=== PATIENT | female | born 1950 | race Caucasian/White ===

== ENCOUNTER 2018-12-23 11:08 | Emergency (ER) | payer MEDICARE ==
[~2018-12-23] VITALS: Ht 170.2 cm; Wt 66.8 kg
[2018-12-23 11:55] LABS: BASOPHILS # (AUTO) 0.1 X10'3 (0-0.2); BASOPHILS % (AUTO) 1.2 % (0-1); EOSINOPHILS # (AUTO) 0.6 X10'3 (0-0.9); EOSINOPHILS % (AUTO) 5.9 % (0-6); HEMATOCRIT 38.4 % (35.0-45.0); HEMOGLOBIN 13.3 g/dl (12.0-16.0); LYMPHOCYTES # (AUTO) 2.6 X10'3 (1.1-4.8); LYMPHOCYTES % (AUTO) 25.5 % (21-51); MEAN CORPUSCULAR HEMOGLOBIN 31.7 PG (27.0-31.0); MEAN CORPUSCULAR HGB CONC 34.7 g/dL (33.0-36.5); MEAN CORPUSCULAR VOLUME 91.4 FL (78-98); MEAN PLATELET VOLUME 7.7 FL (7.4-10.4); MONOCYTES % (AUTO) 9.8 % (2-12); NEUTROPHILS # (AUTO) 5.8 X10'3 (1.8-7.7); NEUTROPHILS % (AUTO) 57.6 % (42-75); PLATELET COUNT 388 X10'3 (140-440); RED CELL DISTRIBUTION WIDTH 13.4 % (11.5-14.5); WHITE BLOOD COUNT 10.1 X10'3 (4.5-11.0)
[2018-12-23] MEDS ORDERED: metoprolol tartrate 1mg/ml inj IV ONE (12:00)
[2018-12-23 12:18] LABS: ALANINE AMINOTRANSFERASE 17 U/L (12-78); ALBUMIN 4.2 G/DL (3.4-5.0); ALBUMIN/GLOBULIN RATIO 1.2 (1.1-1.5); ALKALINE PHOSPHATASE 85 IU/L (46-116); ANION GAP 12 (8-16); ASPARTATE AMINO TRANSFERASE 18 U/L (10-37); BILIRUBIN,TOTAL 0.4 MG/DL (0.1-1.0); BLOOD UREA NITROGEN 11 MG/DL (7-18); BUN/CREATININE RATIO 11.8 (6.6-38.0); CALCIUM 9.6 MG/DL (8.5-10.1); CHLORIDE 100 MMOL/L (99-107); CREATININE 0.93 MG/DL (0.40-0.90); GLUCOSE 96 MG/DL (70-104); PARTIAL THROMBOPLASTIN TIME 31 SECONDS (22-32); POTASSIUM 4.1 MMOL/L (3.5-5.1); SODIUM 136 MMOL/L (135-145); TOTAL CARBON DIOXIDE 24.4 MMOL/L (24-32); TOTAL PROTEIN 7.8 G/DL (6.4-8.2); eGFR 60 ML/MIN
[2018-12-23] MEDS ORDERED: normal saline 1000ML IV soln IVB ONE (12:35)
--- NOTE | 2018-12-23 13:00 | NUR ---
PT REQUESTING TO AMBULATE TO THE BATHROOM. PT GETS UP AND WALKS TO THE DOOR OF HER ROOM SHE STOP AND C/O SOB AND IS UNABLE TO GO DOWN TO THE BATHROOM BRING COMMODE INTO THE ROOM. PT HR IS NOW 126. NOTIFY .
[2018-12-23 14:00] VITALS: BP 107/57
[2018-12-23] MEDS ORDERED: METO-539 PO (15:44)
== END 2018-12-23 14:03 | disposition home or self-care (01) ==
LOC: ER 11:09
DX: R00.2 Palpitations (principal); R06.02 Shortness of breath; R20.2 Paresthesia of skin; G43.909 Migraine, unspecified, not intractable, without status migrainosus; E78.00 Pure hypercholesterolemia, unspecified; F41.9 Anxiety disorder, unspecified; Z87.891 Personal history of nicotine dependence; Z98.890 Other specified postprocedural states
CPT/HCPCS: 36415; 71045; 80053; 84484; 85025; 85610; 85730; 93005; 96374; 99284; J7030; J3490

== ENCOUNTER 2023-01-20 09:22 | Day surgery (SDC) | payer MEDICARE ==
[2023-01-16 15:53] LABS: BASOPHILS # (AUTO) 0.1 X10'3 (0-0.2); BASOPHILS % (AUTO) 0.9 % (0-1); EOSINOPHILS # (AUTO) 0.2 X10'3 (0-0.9); LYMPHOCYTES # (AUTO) 1.8 X10'3 (1.1-4.8); LYMPHOCYTES % (AUTO) 24.9 % (21-51); MEAN CORPUSCULAR HEMOGLOBIN 31.2 PG (27.0-31.0); MEAN CORPUSCULAR HGB CONC 33.3 g/dL (33.0-36.5); MEAN CORPUSCULAR VOLUME 93.5 FL (78-98); MEAN PLATELET VOLUME 7.5 FL (7.4-10.4); MONOCYTES % (AUTO) 13.4 % (2-12); NEUTROPHILS # (AUTO) 4.3 X10'3 (1.8-7.7); NEUTROPHILS % (AUTO) 57.8 % (42-75); PRE OP HEMATOCRIT 36.5 % (35.0-45.0); PRE OP HEMOGLOBIN 12.1 g/dL (12.0-16.0); PRE OP PLATELET COUNT 315 X10'3 (140-440); PRE OP WHITE BLOOD COUNT 7.4 10'3 (4.8-10.8); RED CELL DISTRIBUTION WIDTH 13.8 % (11.5-14.5)
[2023-01-16 16:04] LABS: PRE OP PROTIME 10.4 SECONDS (9.0-12.0)
[2023-01-16 16:11] LABS: ALBUMIN 3.7 G/DL (3.4-5.0); ALBUMIN/GLOBULIN RATIO 1.2 (1.1-1.5); ALKALINE PHOSPHATASE 104 IU/L (46-116); BLOOD UREA NITROGEN 21 MG/DL (7-18); BUN/CREATININE RATIO 22.3 (10.0-20.0); CALCIUM 9.6 MG/DL (8.5-10.1); CHLORIDE 103 MMOL/L (99-107); CREATININE 0.94 MG/DL (0.40-0.90); PRE OP ALT 37 U/L (30-65); PRE OP ANION GAP 5 (8-16); PRE OP AST 55 U/L (10-37); PRE OP BILIRUB, TOTAL 0.5 MG/DL (0.0-1.0); PRE OP GLUCOSE 85 MG/DL (70-104); PRE OP POTASSIUM 4.3 MMOL/L (3.4-5.1); PRE OP SODIUM 136 MMOL/L (135-145); TOTAL CARBON DIOXIDE 28.3 MMOL/L (24-32); TOTAL PROTEIN 6.9 G/DL (6.4-8.2); eGFR 58 ML/MIN
[~2023-01-20] VITALS: Ht 171.4 cm; Wt 88.4 kg
[2023-01-20] VITALS (11 sets, daily range): BP systolic 112–141; BP diastolic 61–87; PULSE 60–80; RESP 11–16; TEMP 97.9; O2SAT 92–100
[~2023-01-20 09:22] MED LIST: ALB0.5UD; ALPR0.255 PO; APIX5TAB3 PO; ATOR-2 PO; B12/1TAB5; BUPR100T15 PO; BUPR300T86 PO; CEFD300C21 PO; DOCUMENT DATE & TIME OF BETA-BLOCKER PO ONE; DONE-46 PO; DULO30CA52 PO; ESKE84SP BOTHNARES; FLUV50TA24 PO; GABA600T13; LIDOcaine 1% w/EPI 1:100,000 inj. MDV 50 ML VIAL ONE; METO25TA6 PO; PANT40TA54 PO; VALA100031 PO; cefazolin 2gm/D5W 100mL 100 ML IV ONE; cocaine 4% topical solution 4ml bottle ONE; enalaprilat dihydrate 2.5mg/2ml vial IV PRN; famotidine 20mg tablet PO ONE; labetalol 20mg/4ml (5mg/ml) syringe IV PRN; meperidine/PF 25mg/ml syringe IV PRN; morphine 2 MG/ML inj. syringe IV PRN; morphine 4 MG/ML inj SYRINge IV PRN; mupirocin 2% ointment 22GM ONE; ondansetron/PF 4mg/2ml inj IV PRN; oxymetazoline 15 ML nasal spray NS ONE; proCHLORperazine 10 MG/2 ml inj IV PRN; ringers solution, lacted 1,000 ML IV SCH; tranexamic acid inj. 1,000 MG in normal saline IV soln 100ML IV ONE
[2023-01-20] MEDS ORDERED: dexamethasone sod phosphate 10mg/ml inj ONE (11:52)
[2023-01-20] MEDS ORDERED: sevoflurane 250ml liquid IH ONE (11:52)
[2023-01-20] MEDS ORDERED: midazolam 1 mg/ML 2ml injection ONE (12:02)
[2023-01-20] MEDS ORDERED: fentaNYL/PF 50MCG/1 ML 2ML syringe ONE (12:02)
[2023-01-20] MEDS ORDERED: ePHEDrine 50MG/ML INJ. ONE (12:14)
[2023-01-20] MEDS ORDERED: propofol inj 20 ML IV ONE (12:14)
[2023-01-20] MEDS ORDERED: LIDOcaine 2% (20mg/ml) 5ml vial ONE (12:14)
[2023-01-20] MEDS ORDERED: tranexamic acid 100mg/ml inj. ONE (12:15)
[2023-01-20] MEDS ORDERED: oxymetazoline 15 ML nasal spray NS ONE (12:41)
[2023-01-20] MEDS ORDERED: LIDOcaine 1% W/epiNEPHrine 1:100,000 20ml vial IJ ONE (12:41)
[2023-01-20] MEDS ORDERED: cocaine 4% topical solution 4ml bottle TP ONE (12:41)
[2023-01-20] MEDS ORDERED: epiNEPHrine 1 mg/ml 30ml MDV ENDO ONE (12:45)
[2023-01-20] MEDS ORDERED: mupirocin 2% cream 15gm TP ONE (12:48)
[2023-01-20] MEDS ORDERED: ondansetron/PF 4mg/2ml inj ONE (12:55)
--- NOTE | 2023-01-20 13:14 | NUR ---
Received from OR via MIN, accompanied by Anesthesiologist and report given by DEREK Anesthesiologist. PATIENT WAKING UP, DENIES PAIN, VSS, 20G PIV TO RIGHT HAND, RIGHT NASAL COTTONOID DRESSING C/D/I. Addendum: 01/20/23 at 1338 by Patrick Marquis RN Amended: Links added.
[2023-01-20] MEDS ORDERED: salt irrigation nasal spray 45 ML SPRAY NS PRN (14:00)
--- NOTE | 2023-01-20 14:00 | NUR ---
REMOVED RIGHT COTTONOID - PT TOLERATED WELL. GAUZE AND NASAL DRESSING WYNNE IN PLACE.
--- NOTE | 2023-01-20 14:54 | NUR ---
PT UP AND DRESSED, VSS, DENIES ANY PAIN, PIV D/CD- CANNULA INTACT, DISCUSSED HOME CARE FOR NASAL IRRIGATION AND MEDICATIONS, PT USED OCEAN SPRAY AND OINTMENT BEFORE LEAVING, ALL QUESTIONS ANSWERED, FRESH GAUZE PLACE UNDER NOSE, PT TAKEN WITH SUPPLIES AND BELONGINGS TO VEHICLE, TRANSPORTED BY [facility]. Addendum: 01/20/23 at 1501 by Patrick Marquis RN Amended: Links added.
== END 2023-01-20 14:54 | disposition home or self-care (01) ==
LOC: PAS 09:22
PROVIDERS: ATTEND Otolaryngology
DX: J32.8 Other chronic sinusitis (principal); J34.89 Other specified disorders of nose and nasal sinuses; I48.91 Unspecified atrial fibrillation; I10 Essential (primary) hypertension; G43.909 Migraine, unspecified, not intractable, without status migrainosus; F32.A Depression, unspecified; F41.9 Anxiety disorder, unspecified; E78.5 Hyperlipidemia, unspecified; M19.90 Unspecified osteoarthritis, unspecified site; Z90.710 Acquired absence of both cervix and uterus; Z96.649 Presence of unspecified artificial hip joint; Z87.891 Personal history of nicotine dependence; Z98.890 Other specified postprocedural states
CPT/HCPCS: 31240; 31253; 31267; 36415; 61782; 80053; 82948; 85025; 85610; 85730; 87070; 87075; A6402; J0171; J0690; J1100; J2250; J2405; J2704; J3010; J3490; J7030; J7050; J7120; Z7506; Z7508; Z7512; A4618; A6449; A7000

== ENCOUNTER 2024-07-10 07:32 | Emergency (ER) | payer MEDICARE ==
[~2024-07-10] VITALS: Ht 170.2 cm; Wt 75.1 kg
[~2024-07-10 07:32] MED LIST changes: +BUPR-480 PO; -BUPR300T86 PO; -DOCUMENT DATE & TIME OF BETA-BLOCKER PO ONE; +FLUV50TA10 PO; -FLUV50TA24 PO; +GABA-1405; -GABA600T13; -LIDOcaine 1% w/EPI 1:100,000 inj. MDV 50 ML VIAL ONE; -cefazolin 2gm/D5W 100mL 100 ML IV ONE; -cocaine 4% topical solution 4ml bottle ONE; -enalaprilat dihydrate 2.5mg/2ml vial IV PRN; -famotidine 20mg tablet PO ONE; -labetalol 20mg/4ml (5mg/ml) syringe IV PRN; -meperidine/PF 25mg/ml syringe IV PRN; -morphine 2 MG/ML inj. syringe IV PRN; -morphine 4 MG/ML inj SYRINge IV PRN; -mupirocin 2% ointment 22GM ONE; -ondansetron/PF 4mg/2ml inj IV PRN; -oxymetazoline 15 ML nasal spray NS ONE; -proCHLORperazine 10 MG/2 ml inj IV PRN; -ringers solution, lacted 1,000 ML IV SCH; -tranexamic acid inj. 1,000 MG in normal saline IV soln 100ML IV ONE
[2024-07-10 07:35] VITALS: TEMP 97.7
[2024-07-10 08:46] LABS: BASOPHILS # (AUTO) 0.1 X10'3 (0-0.2); BASOPHILS % (AUTO) 0.8 % (0-1); EOSINOPHILS # (AUTO) 0.3 X10'3 (0-0.9); EOSINOPHILS % (AUTO) 3.9 % (0-6); HEMATOCRIT 31.9 % (35.0-45.0); HEMOGLOBIN 10.8 g/dl (12.0-16.0); LYMPHOCYTES # (AUTO) 1.8 X10'3 (1.1-4.8); LYMPHOCYTES % (AUTO) 25.3 % (21-51); MEAN CORPUSCULAR HEMOGLOBIN 30.9 PG (27.0-31.0); MEAN PLATELET VOLUME 7.2 FL (7.4-10.4); MONOCYTES # (AUTO) 0.8 X10'3 (0-0.9); PLATELET COUNT 240 X10'3 (140-440); RED BLOOD COUNT 3.51 X10'6 (4.20-5.60); RED CELL DISTRIBUTION WIDTH 13.9 % (11.5-14.5)
[2024-07-10 09:03] LABS: ALBUMIN 3.1 G/DL (3.4-5.0); ANION GAP 4 (8-16); BLOOD UREA NITROGEN 18 MG/DL (7-18); BUN/CREATININE RATIO 21.7 (10.0-20.0); CALCIUM 8.8 MG/DL (8.5-10.1); CHLORIDE 105 MMOL/L (99-107); CREATININE 0.83 MG/DL (0.40-0.90); GLUCOSE 91 MG/DL (70-104); MAGNESIUM 2.2 MG/DL (1.5-2.4); POTASSIUM 4.6 MMOL/L (3.5-5.1); SODIUM 139 MMOL/L (135-145); TOTAL CARBON DIOXIDE 30.2 MMOL/L (24-32); eCRCL 58 ML/MIN; eGFR 67 ML/MIN
[2024-07-10] MEDS: normal saline 500ml IV soln 500 ML IV ONE (09:12)
[2024-07-10 10:13] VITALS: PULSE 56
[2024-07-10 11:21] VITALS: BP 93/75; RESP 15; O2SAT 100
== END 2024-07-10 11:24 | disposition home or self-care (01) ==
LOC: ER 07:34
DX: S01.111A Laceration without foreign body of right eyelid and periocular area, initial encounter (principal); S09.90XA Unspecified injury of head, initial encounter; E78.00 Pure hypercholesterolemia, unspecified; I48.91 Unspecified atrial fibrillation; W18.30XA Fall on same level, unspecified, initial encounter; Y93.89 Activity, other specified; Y92.89 Other specified places as the place of occurrence of the external cause; Y99.8 Other external cause status
CPT/HCPCS: 12011; 36415; 70450; 72125; 80048; 83735; 84484; 85025; 99284; A6402; J7040; A6449

== ENCOUNTER 2024-12-18 19:55 | Inpatient (IN) | payer MEDICARE ==
[~2024-12-18] VITALS: Ht 170.2 cm; Wt 68.0 kg
--- NOTE | 2024-12-18 20:32 | RADIOLOGY REPORT ---
CHEST RADIOGRAPH Indication: CP Technique: 1 view Comparison: None FINDINGS: Lines and Tubes: None. Lungs/Pleura: No focal consolidation, pleural effusion or pneumothorax. Cardiomediastinum: Normal heart size. Aortic atherosclerosis. Other: No acute osseous abnormality. Densely calcified breast implants. IMPRESSION: 1. No acute cardiopulmonary abnormality.
[2024-12-18 20:40] LABS: MEAN PLATELET VOLUME 7.7 FL (7.4-10.4); RED CELL DISTRIBUTION WIDTH 13.7 % (11.5-14.5)
[2024-12-18 20:54] LABS: CREATININE 1.52 MG/DL (0.40-0.90); PRO BRAIN NATRIURETIC PEPTIDE 167 PG/ML (0-450); TOTAL CARBON DIOXIDE 26.8 MMOL/L (24-32); eCRCL 31 ML/MIN; eGFR 33 ML/MIN
--- NOTE | 2024-12-18 21:04 | ELECTROCARDIOGRAPH REPORT ---
[facility] Test Date: 2024-12-18 Test Time: 20:15:48 Pat Name: BRETT RIVERA Department: [facility]-ER Patient ID: [facility]-[id number] Room: Gender: F Business Support Liaison: : 1950 Requested By: EVELINA WERNER Order Number: [id number] Reading MD: Dr. Evelina Werner Measurements Intervals [place] Rate: 67 P: 25 AK: 123 QRS: 80 QRSD: 96 T: 77 QT: 411 QTc: 434 Interpretive Statements Sinus rhythm Nonspecific T abnrm, anterolateral leads Electronically Signed On 12-18-2024 21:08:[address] Evelina Werner Please click the below link to view image of tracing.
--- NOTE | 2024-12-18 22:36 | Physician Documentation ---
History of Present Illness ~ Chief Complaint: Shortness of Breath Stated Complaint: SOB/BACK PAIN Time Seen by MD: 21:57 Primary Medical Doctor: Randi allen 74-year-old female presents to the ED with a complaint of several months of shortness a breath. States that she smoked for 15 years denies living with a smoker currently. Her primary complaints of shortness of breath and increased memory loss and weakness. States she does know she has kidney issues but is not a very good historian regards to her health history. States she does have a recorder of deeds's who is Dr. Mcnally. Describes intermittent chest tim n but calls it a twinge. States that she does have a family history of Alzheimer's but has not been diagnosed with dementia. Day of Onset: Dec 18, 2024 Medication Reconciliation Allergies: Coded Allergies: No Known Allergies (Unverified , 12/23/18) Scheduled Apixaban (Eliquis), 1 TAB PO BID, (Reported) Atorvastatin Calcium (Atorvastatin Calcium), 1 TAB PO DAILY, (Reported) Bupropion HCl (Bupropion HCl Sr), 1 TAB PO QAM, (Reported) Bupropion HCl (Bupropion Xl), 1 TAB PO DAILY, (Reported) Cefdinir (Cefdinir), 1 TAB PO BID, (Reported) Donepezil Hcl (Donepezil Hcl), 1 TAB PO HS, (Reported) Duloxetine HCl (Duloxetine HCl), 3 CAP PO DAILY, (Reported) Esketamine HCl (Spravato), 3 SPRAYS BOTHNARES TuFr, (Reported) Fluvoxamine Maleate (Fluvoxamine Maleate), 1 TAB PO HS, (Reported) Gabapentin (Gabapentin), 0.5 TAB BID, (Reported) Metoprolol Tartrate (Metoprolol Tartrate), 1 TAB PO DAILY, (Reported) Pantoprazole Sodium (Pantoprazole Sodium), 1 TAB PO DAILY, (Reported) Valacyclovir HCl (Valacyclovir), 1 TAB PO DAILY, (Reported) Scheduled PRN Alprazolam (Alprazolam), 1 TAB PO TID PRN for anxiety, (Reported) Miscellaneous Medications Albuterol Sulfate* (Proventil Neb*), (Reported) B12/Methyltetrahydrofolate/B6 (Methyl U66-Gakxor Folate-P5p), (Reported) Past Medical History Past Medical History: Migraine, Atrial Fibrillation, High Cholesterol, Anxiety Past Surgical History: noncontributory, orthopedic surgeries Alcohol Use: Sober Drug Use: none Lives In: Home Review of Systems All Other Systems at this time: Reviewed and Negative ROS As stated above in the HPI, otherwise all systems are reviewed and negative. Physical Exam Vital Signs: Temperature: 98.3, Heart Rate: 97, Respiratory Rate: 14, BP: 115/40, Pulse Oximetry: 98, Weight: 70.900 Oxygen Flow Rate: 0 Physical Exam General: Alert, no apparent distress. Respiratory: Lungs clear, no respiratory distress. Chest: No accessory muscle use. Cardiovascular: Regular rate and rhythm, no murmurs. Extremities: Normal range of motion, no deformity. Neurologic: Oriented x4. Psychiatric: Normal mood and affect. Skin: Normal color, warm and dry. No edema, no ecchymosis. Progress Results/Orders Results/Orders Orders - DEMETRIS DELACRUZ HANDS PARTER Urinalysis, Cult If Indicated (12/18/24 23:10) Vital Signs 12/18/24 12/18/24 20:02 21:51 Temp 97.7 98.3 Pulse 62 97 Resp 16 14 B/P (MAP) 109/40 115/40 (65) Pulse Ox 100 98 O2 Flow Rate 0 0 Laboratory Tests Test 12/18/24 20:19 12/18/24 22:04 12/18/24 23:13 12/18/24 23:50 White Blood Count 7.6 Red Blood Count 3.62 L Hemoglobin 11.4 L Hematocrit 33.0 L Mean Corpuscular Volume 91.3 Mean Corpuscular Hemoglobin 31.6 H Mean Corpuscular Hemoglobin Concent 34.6 Red Cell Distribution Width 13.7 Platelet Count 287 Mean Platelet Volume 7.7 Neutrophils (%) (Auto) 60.6 Lymphocytes (%) (Auto) 24.9 Monocytes (%) (Auto) 11.1 Eosinophils (%) (Auto) 2.7 Basophils (%) (Auto) 0.7 Neutrophils # (Auto) 4.6 Lymphocytes # (Auto) 1.9 Monocytes # (Auto) 0.8 Eosinophils # (Auto) 0.2 Basophils # (Auto) 0.1 CBC Comment Sodium Level 136 Potassium Level 3.7 Chloride Level 101 Carbon Dioxide Level 26.8 Anion Gap 8 Blood Urea Nitrogen 23 H Creatinine 1.52 H Estimated GFR/1.73 m2 33 BUN/Creatinine Ratio 15.1 Glucose Level 85 Hemoglobin A1c 5.6 Osmolality 284 Calcium Level 9.3 Troponin I High Sensitivity 6 6 7 Pro-B-Type Natriuretic Peptide 167 Albumin 3.5 Triglycerides Level 97 Cholesterol Level 148 LDL Cholesterol 43 L HDL Cholesterol 81 H Cholesterol/HDL Ratio 1.8 Procalcitonin < 0.05 Thyroid Stimulating Hormone (TSH) 3.01 Chemistry Comments Troponin I High Sens Percent Delta 0 16 Troponin I Hi Sens Absolute Change 0 1 Urine Comment Drug Screen Comment Heart Score: Heart Score Response (Comments) Value History Slightly Suspicious 0 EKG Normal 0 Age >65 2 Risk Factors >3 or Hx ASHD 2 Troponin Normal limit 0 Total 4 Medical Decision Making Findings The patient does not present with the acute cardiac event or evidence of one. He does present with the acute kidney injury and increased creatinine along with decreased GFR.. Based on these findings and her increased weakness I am going to request hospital admission Differential Dx:Considerations: Include: anxiety, asthma, bronchitis, cardiogenic shock, CHF, COPD, dysrhythmia, hypertension, accelerated, hypertension, essential, hypertension, malignant, hyperventilation, hyponatremia, myocardial infarction, panic attack, pneumonia, pneumonitis, pneumothorax, PSVT, pulmonary embolism, respiratory distress, respiratory failure, sinusitis, upper resp. infection, other Departure Disposition: ADMITTED INPATIENT Impression: Primary Impression: SABRINA (acute kidney injury) Condition: Fair Referrals: NO PRIMARY CARE PROVIDER (PCP) Education Educated: Patient Signature Scribe Signature: h Attestation: Scribed for Demetris Delacruz Jewel Lathe Operator by Demetris Esposito NP . 12/19/24 00:09 DEMETRIS DELACRUZ NP Dec 18, 2024 22:36
--- NOTE | 2024-12-18 23:45 | HISTORY AND PHYSICAL-Residence ---
History & Physical Providers to CC Resident Creating Document: APOLINAR TOUSSAINT, RES ~ History of Present Illness Primary Medical Doctor: Randi Reason for Admit\\Complaint: NOn specific SABIRNA with SOB and generalized weakness History of Present Illness A 74 years old anxious and depressed female presented with the acute on chronic shortness of breath along with the generalized weakness which made her worrisome to come to the ER with the PMH of anxiety, depression, PAfib w/ CVR on Eliquis, non specific Mild cognitive dysfunction, HLD, family hx of cancer in her sister and young onset Alzheimer in her father, 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 She was tearful with the poor historian status stated that she has a concern for her acute sudden shortness of breath today which was totally different from her previous ones while denying coughing up of colorful phlegm or blood, orthopnea and PND with bilateral progressive leg swelling. She denied for any unspecified and unlocalized chest pain but pointed with her finger for the abrupt sharp pain what she called was "twinge", which was not worsen on the deep breathing. She stated that she used to have frequent green colored sputum what she calls is "Biofilm", and frequently on the ABx even after she got the ENT surgery by Dr Castro. She denied for any fever with chills and rigors, and palpitations and any abnormal bladder function including dysuria/frequent and urgent urination and blood in the urine. SHe noticed that she used to have the anemia but not quite sure if she has passing blood in her BM. She only noticed that she has been losing appetite and weight since she stopped eating much over a month now. She has the bowel incontinence since last three weeks which is too much bothersome and making her anxious. She also complained of the recent memory impairment but denied for losing route to go home, losing the keys frequently, and having issues for memorizing the people names although her father had a young onset of Alzheimer. She is currently feeling blue for worrying her grandson who is 14 years old, but she denied for any current active suicidal and homicidal ideas although she used to have some thoughts. She stated that she is compliance medications what she was prescribed by her PCP. Allergies: Coded Allergies: No Known Allergies (Unverified , 12/23/18) Home Medications Home Medications Active Reported Cefdinir 300 Mg Capsule 1 Tab PO BID Methyl T30-Vwoeyb Folate-P5p (B12/Methyltetrahydrofolate/B6) 1,000 Mcg-680 Mcg Dfe-1.5 Mg Tab.chew Valacyclovir (Valacyclovir HCl) 1,000 Mg Tablet 1 Tab PO DAILY Proventil Neb* (Albuterol) 2.5 Mg/0.5 Ml Vial.neb Eliquis (Apixaban) 5 Mg Tablet 1 Tab PO BID Gabapentin 600 Mg Tablet 0.5 Tab BID Metoprolol Tartrate 25 Mg Tablet 1 Tab PO DAILY Atorvastatin Calcium 80 Mg Tablet 1 Tab PO DAILY Donepezil Hcl 5 Mg Tablet 1 Tab PO HS Duloxetine HCl 30 Mg Capsule.dr 3 Cap PO DAILY Fluvoxamine Maleate 50 Mg Tablet 1 Tab PO HS Alprazolam 0.25 Mg Tablet 1 Tab PO TID PRN Bupropion Xl (Bupropion HCl) 300 Mg Tab.er.24h 1 Tab PO DAILY Bupropion HCl Sr (Bupropion HCl) 100 Mg Tablet.er 1 Tab PO QAM Spravato (Esketamine HCl) 84 Mg (28 Mg X 3) Walker 3 Sprays GISSELNARES APOORVA Pantoprazole Sodium 40 Mg Tablet. 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 She is not using any illicit drugs currently. She is living by herself at her apartment were her grandson and daughter came in to help her frequently. She denies the environment surrounded with the smoker. Her primary care provider is Dr. Annie johnson on the [facility] in [facility]. Her it architect is Dr. Mcnally. Alcohol Use: Sober Drug Use: None Lives In: Home ROS All Other Systems: Reviewed and Negative ROS Constitutional: No fever, chills, dizziness, weakness, weight gain or loss Eyes: No pain, erythema, discharge, blurring of vision ENT: No sore throat, epistaxis, tinnitus Cardiovascular: No chest pain, chest pressure, chest discomfort, palpitations, syncope, lower extremity edema, paroxysmal nocturnal dyspnea Respiratory: No cough, hemoptysis Gastrointestinal: Normal appetite. No nausea, vomiting, diarrhea, constipation, hematemesis, abdominal pain, bloating, melena or fresh blood Genitourinary: No frequency, urgency, nocturia, hematuria or dysuria Musculoskeletal: No arthralgias or myalgias Integumentary: No change in skin, hair, nails. No swelling, bruising, abrasions Neurologic: No headache, neck pain, numbness or tingling of the extremities, weakness Psychiatric: No delusions, loss of interest in normal activity or change in sleep pattern, hallucinations, suicidal ideations Endocrine: No fatigue, weakness, polydipsia, polyuria, change in appetite, heat or cold intolerance, sweating, dry skin Hematological: No active bleeding, petechiae Allergies: No asthma or urticaria Exam Vitals: Vital Signs Date Time Temp Pulse Resp B/P (MAP) Pulse Ox O2 Delivery O2 Flow Rate FiO2 12/18/24 21:51 98.3 97 14 115/40 (65) 98 0 General: General: Well alert, well oriented, not confused, not agitated, not in acute distress but tearful and anxious looking, well cooperated during the physical. HEENT: HEENT: Conjunctive are pink, sclerae clear, no icterus, pupil is equal in both sides, reactive to light, no ear discharge, no pharyngeal erythema or an edema, mouth and lips are moist. Neck: Neck: Supple, no JVD, no lymphadenopathy and thyromegaly. Chest: Lungs:Equal air entry on both lungs, no additional sounds Cardiovascular: Heart: S1-S2 regular sinus rhythm and, regular rate, no gallops, no rubs, no murmurs Abdomen: Abdomen: No visible peristalsis, Bowel sounds present on auscultation, soft, nontender, no guarding, no rigidity Extremities: Extremities: No obvious deformities, no pitting edema bilaterally, capillary refill intact, able to wiggle toes both sides, peripheral pulsations are intact on both sides Central Nervous System: EMERGENCY OPERATOR: No focal neurological deficits, no motor and sensory weakness in all 4 extremities, could move all 4 extremities Musculoskeletal: Musculoskeletal: No joint swelling, deformities, inflammations, and no scoliosis and back tenderness Skin: Skin: No active skin lesions and rashes , old bruises over her extremities. 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 # Acute hypoxic respiratory failure possibly due to hypopnea # Generalized weakness and fatigue # Chronic Hyperchromic anemia # Mental issues ( Depression and anxiety) -Given evidence of rapidly increasing SpO2 levels on frequently reminding for the deep breathing with the background history of mental issues, including anxiety and depression, without having any respiratory issues and any evidence of cardiopulmonary problems on the CXR, her acute hypoxic respiratory failure possibly due to hypopnea. -She found to have chronic hyperchromic anemia, and clinical features of depression Vs mild cognitive dysfunction memory issues, the potential differential diagnoses should be ruled out before the actual diagnosis of mental or cognitive issues. -She has hyperchromic anemia without having lab features of alcoholic liver injury, however, she has a hx of changes in her appetite and weight with recently sister from CRC. Her last time Colonscopy was 2-3 years back with some polyps with normal biopsy reports. Plan: - ordered Vitamin B12 levels and procalcitonin and pending FOBT -normal TSH, serum electrolytes -Started Oral supplement for Vitamin B12 and Folic acid -recommended to follow up with PCP for possible therapist session, and continue home meds for psych issues -pending med rec -Normal Urine Tox screen except for barbituates -practice insensitive spirometry for deep breathing -recommend for PFT in the outpatient setting # Nonspecific Acute kidney injury possibly due to Pre renal from dehydration and renal tubular stasis # CKD stage 2a -Trending her previous records for RFTs, her baseline Cr was around 0.8 and eGFR around 67 last 6 months ago -continue monitoring I's and o's -ordered urine lytes for the SABRINA etiology -given one time IV bolus NS 500 cc over an hour -pending UA with microscopy test # PAfib with CVR on Eliquis # Hyperlipidemia -pending med rec -continue telemetry -Lipid profiled showed low LDL 43 # Bowel incontinence -no recent or past hx of constipation -no diarrhea -started metamucil for encouraging the formed stool and prevent constipation CODE STATUS: DNR DNI (will need to reassess once pt depression was stabilized) DVT prophylaxis: Heparin 5000 units b.i.d. Analgesia/sedation: IV morphine as needed Lines/tubes: PIV GI prophylaxis: Famotidine Nutrition: Heart healthy Prognosis: Guarded Disposition: Continue medical management, continue monitoring I's and o's, pending labs, pending med rec, outpatient managements, PT eval and DC plan. Resident MD attestation: Patient was seen, examined and discussed with attending MD, Dr. Roosevelt TOUSSAINT MD Internal Medicine Resident, PGY3 [facility] Date of Service: Dec 19, 2024 Billing Provider: KAYLEIGH NGUYEN MD Common Visit Codes: [id number] INP/OBS CARE (HIGH) Assessment/Plan Assessment EvaluatedPatient with the help of resident. Discussed the case with them. Reviewed notes by the resident. Agree with his assessments and plans. I also reviewed the records myself no additional points at this time APOLINAR TOUSSAINT, RES Dec 18, 2024 23:45 KAYLEIGH NGUYEN MD Dec 19, 2024 04:34
[2024-12-18 23:49] LABS: OSMOLALITY 284 MOSM/K (280-300)
[2024-12-19 00:08] LABS: CHOL/HDL RATIO 1.8 (0.00-4.99); LDL CHOLESTEROL 43 MG/DL (50-100)
[2024-12-19 00:16] LABS: LEUKOCYTE ESTERASE ,URINE NEGATIVE (Neg); NITRITES, URINE NEGATIVE (Neg); OCCULT BLOOD,URINE TRACE-INTACT (Neg)
[2024-12-19 00:18] LABS: UA COLLECTION TYPE CLN CATCH MIDSTREAM
[2024-12-19 00:26] LABS: URINE AMPHETAMINE SCREEN NEGATIVE (Neg); URINE BARBITUATE SCREEN POSITIVE (Neg); URINE BENZODIAZEPINES SCREEN NEGATIVE (Neg); URINE CANNABINOID SCREEN NEGATIVE (Neg); URINE COCAINE SCREEN NEGATIVE (Neg); URINE METHADONE SCREEN NEGATIVE (Neg); URINE OPIATE SCREEN NEGATIVE (Neg); URINE PHENCYCLIDINE SCREEN NEGATIVE (Neg)
[2024-12-19 00:28] LABS: OSMOLALITY UA 247 MOSM/K (50-1400)
[2024-12-19] MEDS: normal saline 500ml IV soln 500 ML IV ONE (00:33)
[2024-12-19 00:34] LABS: SQUAMOUS EPITHELIAL CELL,UR FEW /LPF (FEW)
[2024-12-19] MEDS ORDERED: mag hydrox/Alum hydrox/simeth 30ml oral suspension PO PRN (00:35)
[2024-12-19] MEDS ORDERED: magnesium Cl slow-release 64mg tablet PO PRN (00:35)
[2024-12-19] MEDS ORDERED: potassium Cl 40MEQ/1/2NS 520ml 520 ML IV PRN (00:35)
[2024-12-19] MEDS ORDERED: docusate sod 100mg capsule PO PRN (00:35)
[2024-12-19] MEDS ORDERED: magnesium hydroxide 30ml (MOM) UD suspension PO PRN (00:35)
[2024-12-19] MEDS ORDERED: potassium Cl 20 mEq SR tablet PO PRN (00:35)
[2024-12-19] MEDS ORDERED: magnesium sulf-water 2g/50mL 50 ML IV PRN (00:35)
[2024-12-19] MEDS ORDERED: magnesium sulf-water 4G/100mL 100 ML IV PRN (00:35)
[2024-12-19] MEDS ORDERED: ondansetron/PF 4mg/2ml inj IV PRN (00:35)
[2024-12-19] MEDS ORDERED: morphine 4 MG/ML inj SYRINge IV PRN (00:55)
[2024-12-19] MEDS: psyllium seed 5.8 gm packet (sugar-free) PO SCH (01:25)
[2024-12-19 07:30] VITALS: BP 124/53; PULSE 60; RESP 16; TEMP 97.9; O2SAT 96
[2024-12-19 08:00] VITALS: RESP 16; O2SAT 96
[2024-12-19] MEDS: MULTIVIT-MIN/FERROUS GLUCONATE 9 MG/15 ML LIQUID PO SCH (09:46)
[2024-12-19] MEDS: cyanocobalamin 500mcg tablet PO SCH (09:46)
[2024-12-19] MEDS: heparin, porcine 5000 units/ml vial SQ SCH (09:46)
[2024-12-19 10:00] VITALS: BP 123/54; PULSE 68; RESP 16; TEMP 97.8; O2SAT 98
[2024-12-19] MEDS: K and/or MAG REPLACEMENT MC SCH (12:08)
--- NOTE | 2024-12-19 16:50 | PROGRESS NOTE- Residence ---
Progress Note - Resident Providers to CC Resident Creating Document: BRADLEY ROSS, RES ~ Antibiotic Timeout Antibiotic Ordered?: No Subjective Patient shortness of breath improved compared to yesterday. Patient's stated that she has multiple falls over the past 1 year she uses walker at home for balance. Objective Vital Signs Date Time Temp Pulse Resp B/P (MAP) Pulse Ox O2 Delivery O2 Flow Rate FiO2 12/19/24 10:00 97.8 68 16 123/54 (77) 98 Room Air 12/19/24 06:30 0 Result Diagram: 12/18/24201812/19/24 0140 Awake , alert and oriented to time,place, person, not in distress HEENT: Atraumatic, normocephalic, PERRLA, EOMI, anicteric sclera ; pink conjunctiva, moist mucos membranes Neck: Trachea midline. Supple, normal range of motion, no JVD, no lymphadenopathy Chest and Respiratory: Equal breath sounds bilaterally, no tachypnea, wheezing, ronchi,rubs .Chest wall is symmetric and without deformity. Cardiac: S1, S2 heard,Regular rate and rhythm, no murmurs heard, rubs or gallops. Abdomen: Soft, No tenderness, No guarding or rigidity, Lott's sign negative. normal bowel sounds x4 quadrant, no hepatosplenomegaly MSK: Range of motion of all extremities are normal. There is no joint pain or joint swelling or joint erythema. There is no muscle pain or tenderness or swelling. Extremities: warm, well-perfused, No cyanosis, clubbing, 2+ pulses felt Neurological: Speech is clear, alert, and oriented x 4. No sensory or motor deficits. Cranial nerves II-XII intact. Skin: Warm and dry Advance Care Planning Advanced Care plannin - 30 Minutes Plan Plan Possible acute on chronic diastolic heart failure, ejection fraction 60-65% on 12/19/2024 Ruled out Acute hypoxic respiratory failure Patient complains of shortness of breath and oxygen saturation is 98% on room air Patient has generalized weakness and fatigue TSH is within normal limits No acute cardiopulmonary abnormality on chest x-ray Echocardiogram showed 60-65% ejection fraction, mild TR and mild MR Strict input and output monitoring, daily weights Started on IV Lasix 20 mg b.i.d. daily Continue telemetry monitoring SABRINA on CKD stage 3b Creatinine is 1.52, B/C 12.1 Follow up with urine lytes Paroxysmal atrial fibrillation Telemetry showed sinus rhythm with heart rate of 68 Continue home medication Eliquis 5 mg p.o. b.i.d. Hypertension Continue home medication metoprolol tartrate 25 mg once daily Hyperlipidemia Patient LDL is 43 Continue home medication atorvastatin 80 mg Normocytic Normochromic Anemia H/H are 11.4/ 33.0 follow up with outpatient management monitor H&H Multiple falls from the past 1 year Patient does not complain of any falls recently past 1 month Advised to follow up with outpatient primary care physician Hx of Bowel incontinence no recent hx of constipation no diarrhea Depression and anxiety Continue home medication CODE STATUS: DNR/DNI DVT prophylaxis: Eliquis Analgesia/sedation: morphine Lines/tubes: PIV GI prophylaxis:Protonix Nutrition: Heart healthy Physical therapy: Pending Disposition: Continue medical management, continue monitoring I's and o's, PT eval and DC plan. Resident attestation The above note has been reviewed and supervised by a senior resident PGY3 Patient was seen, examined and discussed with the attending physician Chalino Ross MD Internal Medicine Resident, PGY 1 Date of Service: Dec 19, 2024 Billing Provider: IMELDA NUNN MD Common Visit Codes: [id number] INP/OBS CARE(HIGH) BRADLEY ROSS, RES Dec 19, 2024 16:50 IMELDA NUNN MD Dec 19, 2024 20:53
[2024-12-19] MEDS ORDERED: ALPRAZolam 0.25mg tablet PO PRN (17:35)
[2024-12-19 18:00] VITALS: BP 109/52; PULSE 72; RESP 16; TEMP 97.6; O2SAT 93
[2024-12-19] MEDS: pantoprazole 40mg Tablet.DR PO SCH (18:29)
--- NOTE | 2024-12-19 18:54 | CARDIOLOGY REPORT ---
APPROVED REPORT EXAM: Comprehensive 2D, Doppler, and color-flow Echocardiogram. Patient Location: [address] Blood Pressure: 123/54 mmHg Heart Rate: 66 bpm Rhythm: SINUS Indications CONGESTIVE HEART FAILURE SHORTNESS OF BREATH ATRIAL FIBRILLATION Sand Sifter: Jada Mcnally MD Previous echo: 01/2024 AD [facility] office (EF 65-70%, mild MR, mild TR, trace AI, trace PI, myxomatous MV) 2D Dimensions RVDd 3.5 cm LVOT Diameter 1.92 (1.8-2.4cm) Ao Asc Diam. 2.99 cm IVC 23.74 mm M-Mode Dimensions Left Atrium(MM) 2.53 (2.5-4.0cm) Aortic Root 2.79 (2.2-3.7cm) Aortic Cusp Exc 1.73 (1.5-2.0cm) Aortic Valve AoV Peak [place]. 193.8 cm/s AoV VTI 39.5 cm AO Peak GR. 15.0 mmHg AO Mean GR. 8 mmHg LVOT VTI 33.59 cm LVOT Peak [place]. 141.8 cm/s VICKIE(VTI)/BSA 2.47 cm2/m2 VICKIE (VTI) 2.47 cm2 Mitral Valve MV E Velocity 83.3 cm/s MV Peak Gr. 4 mmHg MV DECEL TIME 252 ms MV A Velocity 120.9 cm/s MV PHT 60 ms E/A Ratio 0.7 MVA (PHT) 3.67 cm2 MV VMax 100.0 cm/s TDI Medial E' P. V 13.81 cm/s E/Medial E' 6.0 Tricuspid Valve TR P. Velocity 273 cm/s RAP ESTIMATE 10 mmHg TR Peak Gr. 30 mmHg RVSP 40 mmHg Pulmonary Vein S1 Velocity 55.8 cm/s D2 Velocity 42.8 cm/s PVa Velocity 38.7 cm/s PVa Duration 152 msec LEFT VENTRICLE Normal LV size and wall thickness. Overall systolic function is normal. LVEF is 60-65%. RIGHT VENTRICLE RV is mildly dilated with normal systolic function. RVSP is estimated at 40 mmHg. ATRIA LA size is normal. AORTIC VALVE Trileaflet AV appears mildly sclerotic without stenosis. Trivial insufficiency. MITRAL VALVE Mild MV annular calcification and leaflet thickening without stenosis. Trace regurgitation. TRICUSPID VALVE TV appears structurally normal with trace regurgitation. PULMONIC VALVE Normal PV without stenosis, physiologic insufficiency. GREAT VESSELS The aortic root is normal in size. The ascending aorta is normal in size. IVC is dilated and collapses greater than 50% with inspiration. PERICARDIUM Mild anterior pericardial effusion vs. prominent anterior fat pad. No evidence of hemodynamic compromise. Other Information Study Quality: Adequate, but difficult due to breast implants. Conclusion Normal LV size and wall thickness. Overall systolic function is normal. LVEF is 60-65%. RV is mildly dilated with normal systolic function. RVSP is estimated at 40 mmHg. LA size is normal. Trileaflet AV appears mildly sclerotic without stenosis. Trivial insufficiency. Mild MV annular calcification and leaflet thickening without stenosis. Trace regurgitation. TV appears structurally normal with trace regurgitation. Mild anterior pericardial effusion vs. prominent anterior fat pad. No evidence of hemodynamic compromise.
[2024-12-19 20:00] VITALS: RESP 16; O2SAT 96
[2024-12-19] MEDS: fluvoxamine 25 MG tablet PO SCH (21:01)
[2024-12-19] MEDS: donepezil 5mg tablet PO SCH (21:02)
[2024-12-19 22:00] VITALS: BP 154/62; PULSE 69; RESP 16; TEMP 96.4; O2SAT 97
[2024-12-19] MEDS: morphine 4 MG/ML inj SYRINge IV PRN (22:37)
[2024-12-20 06:00] VITALS: BP 102/51; PULSE 68; RESP 12; TEMP 97.2; O2SAT 97
[2024-12-20 06:18] LABS: MEAN PLATELET VOLUME 7.8 FL (7.4-10.4); RED CELL DISTRIBUTION WIDTH 13.6 % (11.5-14.5)
[2024-12-20 06:25] LABS: CREATININE 1.16 MG/DL (0.40-0.90); TOTAL CARBON DIOXIDE 30.4 MMOL/L (24-32); eCRCL 41 ML/MIN; eGFR 46 ML/MIN
[2024-12-20] MEDS: duloxetine 30mg CAPSULE.DR PO SCH (07:58)
[2024-12-20] MEDS: potassium Cl 20 mEq SR tablet PO PRN (07:58)
[2024-12-20 10:00] VITALS: BP 111/45; PULSE 91; RESP 16; TEMP 97.9; O2SAT 95
--- NOTE | 2024-12-20 15:29 | PROGRESS NOTE- Residence ---
Progress Note - Resident Providers to CC Resident Creating Document: BRADLEY ROSS, RES ~ Rosales-Non Protocol Rosales Indications Met/Not Met: F/C Indications Not Met Antibiotic Timeout Antibiotic Ordered?: No Subjective Patient shortness of breath improved compared to yesterday. Patient had mild anxiety attack and relieved with Ativan. Negative fluid balance of 1450 mL noted. Objective Vital Signs Date Time Temp Pulse Resp B/P (MAP) Pulse Ox O2 Delivery O2 Flow Rate FiO2 12/20/24 10:00 97.9 91 16 111/45 (67) 95 Room Air 12/20/24 08:00 0.0 Result Diagram: 12/20/24 0535 12/20/24 0535 Awake , alert and oriented to time,place, person, not in distress HEENT: Atraumatic, normocephalic, PERRLA, EOMI, anicteric sclera ; pink conjunctiva, moist mucos membranes Neck: Trachea midline. Supple, normal range of motion, no JVD, no lymphadenopathy Chest and Respiratory: Equal breath sounds bilaterally, no tachypnea, wheezing, ronchi,rubs .Chest wall is symmetric and without deformity. Cardiac: S1, S2 heard,Regular rate and rhythm, no murmurs heard, rubs or gallops. Abdomen: Soft, No tenderness, No guarding or rigidity, Lott's sign negative. normal bowel sounds x4 quadrant, no hepatosplenomegaly MSK: Range of motion of all extremities are normal. There is no joint pain or joint swelling or joint erythema. There is no muscle pain or tenderness or swelling. Extremities: warm, well-perfused, No cyanosis, clubbing, 2+ pulses felt Neurological: Speech is clear, alert, and oriented x 4. No sensory or motor deficits. Cranial nerves II-XII intact. Skin: Warm and dry Plan Plan Possible acute on chronic diastolic heart failure, ejection fraction 60-65% on 12/19/2024 Ruled out Acute hypoxic respiratory failure Patient complains of shortness of breath and oxygen saturation is 98% on room air Patient has generalized weakness and fatigue TSH is within normal limits No acute cardiopulmonary abnormality on chest x-ray Echocardiogram showed 60-65% ejection fraction, mild TR and mild MR Strict input and output monitoring, daily weights Started on IV Lasix 20 mg b.i.d. daily 12/20/24: Negative fluid balance of 1450 mL noted. Continue IV Lasix 20 mg b.i.d. daily Started on Jardiance 10 mg p.o. daily Advised outpatient sleep study SABRINA on CKD stage 3b, like prerenal possible vasomotor nephropathy Creatinine is 1.52, B/C 12.1 Follow up with urine lytes 12/20/2024: Patient creatinine is 1.16 today Advised To follow up with PCP and to set an appointment with Nephrology in view of CKD Hypokalemia, resolved Potassium is 3.1 Placed on potassium replacement protocol Monitor BMP Paroxysmal atrial fibrillation Telemetry showed sinus rhythm with heart rate of 68 Continue home medication Eliquis 5 mg p.o. b.i.d. Hypertension Continue home medication metoprolol tartrate 25 mg once daily Hyperlipidemia Patient LDL is 43 Continue home medication atorvastatin 80 mg Normocytic Normochromic Anemia H/H are 11.4/ 33.0 follow up with outpatient management monitor H&H Multiple falls from the past 1 year Patient does not complain of any falls recently past 1 month Advised to follow up with outpatient primary care physician Hx of Bowel incontinence no recent hx of constipation no diarrhea Depression and anxiety Continue home medication CODE STATUS: DNR/DNI DVT prophylaxis: Eliquis Analgesia/sedation: morphine Lines/tubes: PIV GI prophylaxis:Protonix Nutrition: Heart healthy Physical therapy: Pending Disposition: Continue medical management, continue monitoring I's and o's, PT eval and DC plan. Resident attestation The above note has been reviewed and supervised by a senior resident PGY3 Patient was seen, examined and discussed with the attending physician Chalino Ross MD Internal Medicine Resident, PGY 1 Date of Service: Dec 20, 2024 Billing Provider: IMELDA NUNN MD Common Visit Codes: [id number] INP/OBS CARE(HIGH) BRADLEY ROSS, RES Dec 20, 2024 15:29 IMELDA NUNN MD Dec 20, 2024 21:56
[2024-12-20] MEDS: EMPAGLIFLOZIN 10 MG TABLET PO SCH (16:47)
[2024-12-20 18:00] VITALS: BP 126/49; PULSE 66; RESP 16; TEMP 98.7; O2SAT 96
[2024-12-20 20:00] VITALS: RESP 16; O2SAT 96
[2024-12-20 22:00] VITALS: BP 125/50; PULSE 62; RESP 14; TEMP 97.7; O2SAT 95
[2024-12-21 06:00] VITALS: BP 107/46; PULSE 65; RESP 14; TEMP 96.9; O2SAT 96
[2024-12-21 06:06] LABS: MEAN PLATELET VOLUME 7.5 FL (7.4-10.4); RED CELL DISTRIBUTION WIDTH 14.1 % (11.5-14.5)
[2024-12-21 06:32] LABS: CREATININE 1.06 MG/DL (0.40-0.90); TOTAL CARBON DIOXIDE 29.3 MMOL/L (24-32); eCRCL 45 ML/MIN; eGFR 51 ML/MIN
[2024-12-21 08:30] VITALS: RESP 14; O2SAT 96
[2024-12-21] MEDS ORDERED: FURO-150 PO (08:34)
[2024-12-21] MEDS ORDERED: EMPA10TA PO (08:34)
[2024-12-21 08:49] VITALS: BP_SYST 107; PULSE 65
[2024-12-21] MEDS ORDERED: LORA-269 PO (09:58)
--- NOTE | 2024-12-21 17:18 | DISCHARGE SUMMARY-Residence ---
Discharge Summary Providers to CC Resident Creating Document: JAIRONBRADLEYLORENA KHAN, RES ~ Discharge Summary Admission Diagnosis: NON SPECIFIC SABRINA PRESENTING CHRONIC WEAKNESS Hospital Course DATE OF ADMISSION: 12/18/24 DATE OF DISCHARGE: 12/21/24 Discharge Diagnosis\\Comment: Possible acute on chronic diastolic heart failure, ejection fraction 60-65% on 12/19/2024 SABRINA on CKD stage 3b, like prerenal with possible vasomotor nephropathy Hypokalemia, resolved Multiple falls of unknown etiology from the past 1 year Paroxysmal atrial fibrillation Hypertension Hyperlipidemia Normocytic Normochromic Anemia Hx of Bowel incontinence Depression Anxiety Operations\\Procedures: None Consultants: None Complications: None Condition on DC: Stable New Medications: Empagliflozin (Jardiance) 10 Mg Tablet 1 TAB PO DAILY for 30 Days, #30 TAB 0 Refills Furosemide (Lasix) 20 Mg Tablet 20 MG PO BID for 30 Days, #60 TAB Lorazepam (Ativan) 1 Mg Tablet 1 TAB PO Q12H PRN PRN for anxiety, #14 TAB 0 Refills Continued Medications: Albuterol Sulfate* (Proventil Neb*) 2.5 Mg/0.5 Ml Vial.neb Alprazolam (Alprazolam) 0.25 Mg Tablet 1 TAB PO TID PRN for anxiety Apixaban (Eliquis) 5 Mg Tablet 1 TAB PO BID Atorvastatin Calcium (Atorvastatin Calcium) 80 Mg Tablet 1 TAB PO DAILY B12/Methyltetrahydrofolate/B6 (Methyl K04-Lwybrk Folate-P5p) 1,000 Mcg-680 Mcg Dfe-1.5 Mg Tab.chew Bupropion HCl (Bupropion HCl Sr) 100 Mg Tablet.er 1 TAB PO QAM Donepezil Hcl (Donepezil Hcl) 5 Mg Tablet 1 TAB PO HS Duloxetine HCl (Duloxetine HCl) 30 Mg Capsule.dr 3 CAP PO DAILY Fluvoxamine Maleate (Fluvoxamine Maleate) 50 Mg Tablet 1 TAB PO HS Gabapentin (Gabapentin) 600 Mg Tablet 0.5 TAB BID Pantoprazole Sodium (Pantoprazole Sodium) 40 Mg Tablet.dr 1 TAB PO DAILY Discontinued Medications: Bupropion HCl (Bupropion Xl) 300 Mg Tab.er.24h 1 TAB PO DAILY Cefdinir (Cefdinir) 300 Mg Capsule 1 TAB PO BID Metoprolol Tartrate (Metoprolol Tartrate) 25 Mg Tablet 1 TAB PO DAILY Discharge Summary: History of present illness as per admitting physician: A 74 years old anxious and depressed female presented with the acute on chronic shortness of breath along with the generalized weakness which made her worrisome to come to the ER with the PMH of anxiety, depression, PAfib w/ CVR on Eliquis, non specific Mild cognitive dysfunction, HLD, family hx of cancer in her sister and young onset Alzheimer in her father, 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 She was tearful with the poor historian status stated that she has a concern for her acute sudden shortness of breath today which was totally different from her previous ones while denying coughing up of colorful phlegm or blood, orthopnea and PND with bilateral progressive leg swelling. She denied for any unspecified and unlocalized chest pain but pointed with her finger for the abrupt sharp pain what she called was "twinge", which was not worsen on the deep breathing. She stated that she used to have frequent green colored sputum what she calls is "Biofilm", and frequently on the ABx even after she got the ENT surgery by Dr Castro. She denied for any fever with chills and rigors, and palpitations and any abnormal bladder function including dysuria/frequent and urgent urination and blood in the urine. SHe noticed that she used to have the anemia but not quite sure if she has passing blood in her BM. She only noticed that she has been losing appetite and weight since she stopped eating much over a month now. She has the bowel incontinence since last three weeks which is too much bothersome and making her anxious. She also complained of the recent memory impairment but denied for losing route to go home, losing the keys frequently, and having issues for memorizing the people names although her father had a young onset of Alzheimer. She is currently feeling blue for worrying her grandson who is 14 years old, but she denied for any current active suicidal and homicidal ideas although she used to have some thoughts. She stated that she is compliance medications what she was prescribed by her PCP. Course in the hospital: Patient admitted with shortness of breath, generalized weakness and fatigue and O2 saturation is 98% on room air. No cardiopulmonary abnormality on chest x- ray. TSH, CBC, LFT and RFTs are normal. Sinus rhythm with heart rate of 68 on telemetry. Echocardiogram showed 60-65% of ejection fraction, mild TR and mild MR. Patient was treated with IV Lasix and she diuresed well and her shortness of breath improved. Patient was started with GDMT Jardiance 10 mg p.o. once daily. SABRINA on CKD stage 3b, like prerenal : Patient has creatinine of 1.52, GFR of 33, B/C ratio of 15.1 on admission. Patient kidney function improved with Lasix and returned to normal baseline. Patient was advised to follow up with outpatient management for CKD Mild hypokalemia, of 3.1 resolved with potassium replacement protocol. Patient has Multiple falls of unknown etiology from the past 1 year and advised to follow up with outpatient management. Patient was continued with home medications for Paroxysmal atrial fibrillation,Hypertension,Hyperlipidemia,Normocytic Normochromic Anemia,Hx of Bowel incontinence,Depression, Anxiety. Imaging: Chest x-ray: No acute cardiopulmonary abnormality. Echocardiogram: Normal LV size and wall thickness. Overall systolic function is normal. LVEF is 60-65%. RV is mildly dilated with normal systolic function. RVSP is estimated at 40 mmHg. LA size is normal. Trileaflet AV appears mildly sclerotic without stenosis. Trivial insufficiency. Mild MV annular calcification and leaflet thickening without stenosis. Trace regurgitation. TV appears structurally normal with trace regurgitation. Mild anterior pericardial effusion vs. prominent anterior fat pad. No evidence of hemodynamic compromise. Vital Signs Date Time Temp Pulse Resp B/P (MAP) Pulse Ox O2 Delivery O2 Flow Rate FiO2 12/21/24 08:49 65 12/21/24 08:30 14 96 Room Air 12/21/24 08:00 0.0 12/21/24 06:00 96.9 107/46 (66) Laboratory Tests Test 12/19/24 19:48 12/20/24 05:35 12/20/24 16:19 12/21/24 05:28 Osmolality 289 MOSM/K White Blood Count 6.3 X10'3 6.6 X10'3 Red Blood Count 3.57 X10'6 3.81 X10'6 Hemoglobin 11.4 g/dl 12.0 g/dl Hematocrit 32.1 % 34.8 % Mean Corpuscular Volume 90.0 FL 91.3 FL Mean Corpuscular Hemoglobin 31.9 PG 31.5 PG Mean Corpuscular Hemoglobin Concent 35.4 g/dL 34.5 g/dL Red Cell Distribution Width 13.6 % 14.1 % Platelet Count 266 X10'3 285 X10'3 Mean Platelet Volume 7.8 FL 7.5 FL Neutrophils (%) (Auto) 55.6 % 56.7 % Lymphocytes (%) (Auto) 31.7 % 27.4 % Monocytes (%) (Auto) 8.7 % 11.6 % Eosinophils (%) (Auto) 3.2 % 3.5 % Basophils (%) (Auto) 0.8 % 0.8 % Neutrophils # (Auto) 3.5 X10'3 3.8 X10'3 Lymphocytes # (Auto) 2.0 X10'3 1.8 X10'3 Monocytes # (Auto) 0.5 X10'3 0.8 X10'3 Eosinophils # (Auto) 0.2 X10'3 0.2 X10'3 Basophils # (Auto) 0.1 X10'3 0.1 X10'3 CBC Comment Sodium Level 140 MMOL/L 141 MMOL/L Potassium Level 3.0 MMOL/L 4.3 MMOL/L 4.0 MMOL/L Chloride Level 103 MMOL/L 103 MMOL/L Carbon Dioxide Level 30.4 MMOL/L 29.3 MMOL/L Anion Gap 7 9 Blood Urea Nitrogen 19 MG/DL 22 MG/DL Creatinine 1.16 MG/DL 1.06 MG/DL Estimated GFR/1.73 m2 46 ML/MIN 51 ML/MIN BUN/Creatinine Ratio 16.4 20.8 Glucose Level 169 MG/DL 130 MG/DL Calcium Level 9.1 MG/DL 9.2 MG/DL Magnesium Level 1.9 MG/DL 2.1 MG/DL Total Bilirubin 0.3 MG/DL 0.4 MG/DL Aspartate Amino Transf (AST/SGOT) 17 U/L 15 U/L Alanine Aminotransferase (ALT/SGPT) 13 U/L 15 U/L Alkaline Phosphatase 58 IU/L 62 IU/L Total Protein 6.7 G/DL 6.7 G/DL Albumin 3.5 G/DL 3.5 G/DL Globulin 3.2 G/DL 3.2 G/DL Albumin/Globulin Ratio 1.1 1.1 Chemistry Comments Physical exam at discharge: Awake , alert and oriented to time,place, person, not in distress HEENT: Atraumatic, normocephalic, PERRLA, EOMI, anicteric sclera ; pink conjunctiva, moist mucos membranes Neck: Trachea midline. Supple, normal range of motion, no JVD, no lymphadenopathy Chest and Respiratory: Equal breath sounds bilaterally, no tachypnea, wheezing, ronchi,rubs .Chest wall is symmetric and without deformity. Cardiac: S1, S2 heard,Regular rate and rhythm, no murmurs heard, rubs or gallops. Abdomen: Soft, No tenderness, No guarding or rigidity, Lott's sign negative. normal bowel sounds x4 quadrant, no hepatosplenomegaly MSK: Range of motion of all extremities are normal. There is no joint pain or joint swelling or joint erythema. There is no muscle pain or tenderness or swelling. Extremities: warm, well-perfused, No cyanosis, clubbing, 2+ pulses felt Neurological: Speech is clear, alert, and oriented x 4. No sensory or motor deficits. Cranial nerves II-XII intact. Skin: Warm and dry Discharge instructions: Advised to follow up with PCP, submarine advisory team watch officer in 1 week Advised to get sleep study Advised to take Jardiance 10 mg p.o. daily Advised to take Ativan 10 mg for anxiety p.r.n Advised to check blood pressures regularly Advised to compliant with home medications In Case of any worsening symptoms, call 911 or go to the ER immediately *Problems/Diagnosis: (1) Acute on chronic diastolic heart failure (2) Acute kidney injury (3) Vasomotor nephropathy (4) Hypokalemia (5) CKD stage 3b, GFR 30-44 ml/min (6) Multiple falls Total Time Spent on D/C: > 30 Minutes Date of Service: Dec 21, 2024 Billing Provider: IMELDA NUNN MD Common Visit Codes: 38012-RPF/OBS DISCH DAY >30min JAIRONBRADLEYLORENA KHAN, RES Dec 21, 2024 16:52 IMELDA NUNN MD Dec 21, 2024 22:53
== END 2024-12-21 11:17 | disposition home or self-care (01) | DRG 682 ==
LOC: ER 19:56 → ED HOLD 23:17 → EDBEDREQ 12-19 06:38 → ORTHO 4S 12-19 07:40
PROVIDERS: ADMIT Internal Medicine Critical Care Medicine; ATTEND Internal Medicine
DX: N17.0 Acute kidney failure with tubular necrosis (principal); I50.33 Acute on chronic diastolic (congestive) heart failure; I13.0 Hypertensive heart and chronic kidney disease with heart failure and stage 1 through stage 4 chronic kidney disease, or unspecified chronic kidney disease; F41.9 Anxiety disorder, unspecified; F32.A Depression, unspecified; I48.0 Paroxysmal atrial fibrillation; E78.5 Hyperlipidemia, unspecified; N18.32 Chronic kidney disease, stage 3b; D64.9 Anemia, unspecified; E87.6 Hypokalemia; E11.22 Type 2 diabetes mellitus with diabetic chronic kidney disease; E78.00 Pure hypercholesterolemia, unspecified; G43.909 Migraine, unspecified, not intractable, without status migrainosus
CPT/HCPCS: 36415; 71045; 80048; 80053; 80061; 80305; 81001; 81003; 82043; 82607; 83036; 83735; 83880; 83930; 83935; 84132; 84145; 84300; 84443; 84484; 85025; 87081; 93005; 93306; 97161; 97530; 99285; G0378; J1644; J1938; J2270; J7040

== ENCOUNTER 2024-12-23 09:15 | Emergency (ER) | payer MEDICARE ==
[~2024-12-23] VITALS: Ht 167.6 cm; Wt 68.8 kg
[~2024-12-23 09:15] MED LIST changes: -BUPR-480 PO; -CEFD300C21 PO; +EMPA10TA PO; -ESKE84SP BOTHNARES; +FURO-150 PO; +LORA-269 PO; -METO25TA6 PO; -VALA100031 PO
[2024-12-23 09:18] VITALS: TEMP 97
--- NOTE | 2024-12-23 09:38 | Physician Documentation ---
History of Present Illness General Chief Complaint: Mechanical Fall Stated Complaint: FALL HEAD STRIKE ON THINNERS Time Seen by MD: 09:38 Primary Medical Doctor: Randi History of Present Illness Initial Comments Patient is a 74-year-old female who was on Eliquis. Patient states that she fell twice last night when she got up from bed and one of the episode she struck her head. The patient denies loss of consciousness. Patient complains of neck pain. The patient denies any recent fevers chills nausea or vomiting. Patient states she has been feeling weak she was recently admitted to the hospital. Medication Reconciliation Allergies: Coded Allergies: No Known Allergies (Unverified , 12/23/24) Scheduled Apixaban (Eliquis), 1 TAB PO BID, (Reported) Atorvastatin Calcium (Atorvastatin Calcium), 1 TAB PO DAILY, (Reported) Bupropion HCl (Bupropion HCl Sr), 1 TAB PO QAM, (Reported) Donepezil Hcl (Donepezil Hcl), 1 TAB PO HS, (Reported) Duloxetine HCl (Duloxetine HCl), 3 CAP PO DAILY, (Reported) Empagliflozin (Jardiance), 1 TAB PO DAILY Fluvoxamine Maleate (Fluvoxamine Maleate), 1 TAB PO HS, (Reported) Furosemide (Lasix), 20 MG PO BID Gabapentin (Gabapentin), 0.5 TAB BID, (Reported) Pantoprazole Sodium (Pantoprazole Sodium), 1 TAB PO DAILY, (Reported) Scheduled PRN Alprazolam (Alprazolam), 1 TAB PO TID PRN for anxiety, (Reported) Lorazepam (Ativan), 1 TAB PO Q12H PRN PRN for anxiety Miscellaneous Medications Albuterol Sulfate* (Proventil Neb*), (Reported) B12/Methyltetrahydrofolate/B6 (Methyl S77-Xozchz Folate-P5p), (Reported) Discontinued Medications Bupropion HCl (Bupropion Xl), 1 TAB PO DAILY, (Reported) Cefdinir (Cefdinir), 1 TAB PO BID, (Reported) Esketamine HCl (Spravato), 3 SPRAYS BOTHNARES TuFr, (Reported) Discontinued Reason: patient no longer taking Metoprolol Tartrate (Metoprolol Tartrate), 1 TAB PO DAILY, (Reported) Valacyclovir HCl (Valacyclovir), 1 TAB PO DAILY, (Reported) Discontinued Reason: patient no longer taking Past Medical History Past Medical History: Migraine, Atrial Fibrillation, High Cholesterol, Anxiety Past Surgical History: noncontributory, orthopedic surgeries Alcohol Use: Sober Drug Use: none Lives In: Home Review of Systems All Other Systems at this time: Reviewed and Negative Physical Exam Physical Exam Vital Signs: Temperature: 97.0, Source: Temporal, Heart Rate: 80, Respiratory Rate: 18, BP: 107/37, Pulse Oximetry: 99, Weight: 68.800 Oxygen Flow Rate: 0 Physical Exam VITALS: Reviewed and as above. GENERAL: Alert, no apparent distress. HEENT: Normocephalic, atraumatic, PERRL, EOMI, dry mucosa, no erythema RESPIRATORY: Lungs clear, normal breath sounds, no respiratory distress. CHEST: No accessory muscle use, no retractions CV: Regular rate, rhythm, no edema, no murmur, No: JVD GI: Soft, non-tender, bowels sounds present, no rebound, guarding, or rigidity BACK: No CVA tenderness, or swelling paraspinal cervical tenderness in the four through six cervical spine region no midline tenderness or deformity. MUSCULOSKELETAL: No deformities, no edema SKIN: Warm and dry, abrasion to the upper forehead midline NEURO: Oriented x4, No motor or sensory deficit PSYCH: Normal mood and affect, no agitation Progress Progress Note Patient: BRETT RIVERA Medical Record: [id number] [facility] : 1950, Age: 74 Sex: Female Location: ER Patient Status: REG ER Service Date/Time: 12/23/241002 Ordering Physician: LISA SHI MD Exam: CT CERVICAL SPINE EXAM: CT CT CERVICAL SPINE HISTORY: fall, neck pain COMPARISON: CT CT HEAD on DOS: 12/23/24, CT CT CERVICAL SPINE on DOS: 07/10/24, CT CT HEAD on DOS: 07/10/24 CTDIvol 21 mGy, DLP 481 mGy*cm. TECHNIQUE: Multiple axial CT images of the spine were obtained using bone algorithm. Axial and coronal reformatting was done. Bone and soft tissue windows were reviewed. FINDINGS: No evidence of definite acute fracture, spinal dislocation, or significant appearing acute subluxation is seen. Multilevel degenerative changes of the spine. IMPRESSION: No acute fracture or dislocation. Electronically Signed by:CHALINO HONEYCUTT MD Date & Time: 12/23/24 1033 Dictated by: CHALINO HONEYCUTT MD Dictation date and time: 12/23/24 1003 Primary Care Provider: NO PRIMARY CARE PROVIDER cc: LISA SHI MD ~ Results/Orders Results/Orders Orders - LISA SHI MD Ct Head (12/23/24 10:02) Ct Cervical Spine (12/23/24 10:03) Sacrum & Coccyx (12/23/24 ) Wound Care Orders (12/23/24 13:16) Completed Orders - LISA SHI MD Ct Head (12/23/24 10:02) Ct Cervical Spine (12/23/24 10:03) Bmp Er (12/23/24 09:43) Procalcitonin (12/23/24 09:43) Normal Saline 1000ml (0.9% Sodium Chlori (12/23/24 09:45) Acetaminophen 1,000mg/100ml Iv (Ofirmev (12/23/24 09:45) Cbc/Diff (12/23/24 10:35) Sacrum & Coccyx (12/23/24 ) Ua W/Microscopic, Cult If Ind (12/23/24 12:41) Hydrocodone/Apap 5/325mg Tab ([place] 5/32 (12/23/24 13:15) Vital Signs 12/23/24 12/23/24 12/23/24 12/23/24 09:18 09:43 10:53 11:23 Temp 97.0 Pulse 80 64 60 Resp 18 15 18 B/P (MAP) 107/37 114/58 (76) 108/55 (72) Pulse Ox 99 99 99 O2 Flow Rate 0 0 12/23/24 12/23/24 13:42 13:55 Pulse 62 Resp 18 16 B/P (MAP) 103/55 Pulse Ox 100 Laboratory Tests Test 12/23/24 10:19 12/23/24 10:51 12/23/24 12:41 CBC Comment Sodium Level 139 Potassium Level 4.6 Chloride Level 100 Carbon Dioxide Level 31.7 Anion Gap 7 L Blood Urea Nitrogen 21 H Creatinine 1.51 H Estimated GFR/1.73 m2 34 BUN/Creatinine Ratio 13.9 Glucose Level 111 H Calcium Level 9.2 Albumin 3.8 Procalcitonin < 0.05 Chemistry Comments White Blood Count 9.9 Red Blood Count 3.78 L Hemoglobin 11.9 L Hematocrit 34.8 L Mean Corpuscular Volume 92.2 Mean Corpuscular Hemoglobin 31.5 H Mean Corpuscular Hemoglobin Concent 34.2 Red Cell Distribution Width 13.8 Platelet Count 268 Mean Platelet Volume 7.4 Neutrophils (%) (Auto) 74.8 Lymphocytes (%) (Auto) 13.1 L Monocytes (%) (Auto) 10.5 Eosinophils (%) (Auto) 1.3 Basophils (%) (Auto) 0.3 Neutrophils # (Auto) 7.4 Lymphocytes # (Auto) 1.3 Monocytes # (Auto) 1.0 H Eosinophils # (Auto) 0.1 Basophils # (Auto) 0.0 Urine Specimen Description Cln catch midstream Urine Color Yellow Urine Clarity Clear Urine pH 6.0 Urine Specific [place] 1.010 Urine Protein Negative Urine Glucose (UA) >=1000 H Urine Ketones Negative Urine Occult Blood Negative Urine Nitrite Negative Urine Bilirubin Negative Urine Urobilinogen 0.2 Urine Leukocyte Esterase Negative Urine RBC 3-10 Urine WBC 0-4 Urine Squamous Epithelial Cells Moderate Urine Transitional Epithelial Cells Few Urine Renal Cells Few Urine Bacteria Few Urine Mucus Few Urine Culture Indicated Not ind Volume Urine Centrifuged 10 ml Urine Comment EKG/XRAY/CT/US/VASC/MRI Bone/Soft Tissue X-Ray (Spine) : Additional Comment Patient: BRETT RIVERA Medical Record: [id number] : 1950, Age: 74 Sex: Female Location: ER Patient Status: REG ER Service Date/Time: 12/23/24 Ordering Physician: LISA SHI MD Exam: SACRUM & COCCYX INDICATION: fall TECHNIQUE: 3 views of the lumbar spine were obtained. COMPARISON: None FINDINGS: There are no acute fractures or subluxations. Right hip arthroplasty. Moderate degenerative changes of the left hip. IMPRESSION: No acute fracture or subluxation. Electronically Signed by:CHALINO HONEYCUTT MD Date & Time: 12/23/24 1240 Dictated by: CHALINO HONEYCUTT MD Dictation date and time: 12/23/24 1231 Primary Care Provider: NO PRIMARY CARE PROVIDER cc: LISA SHI MD ~ CT : Impression Patient: BRETT RIVERA Medical Record: [id number] [facility] : 1950, Age: 74 Sex: Female Location: ER Patient Status: [facility] ER Service Date/Time: 12/23/241001 Ordering Physician: LISA SHI MD Exam: CT HEAD CLINICAL INFORMATION: Fall injury. Head injury. TECHNIQUE: Axial imaging was obtained through the brain without contrast. Coronal and sagittal reformatted images were obtained, reviewed, and stored. Images were reviewed in brain and bone windows. All CT scans at this medical facility are performed using dose modulation techniques as appropriate to a performed exam including the following: Automated exposure control was utilized; adjustment of the MA and/or KV according to patient size; and use of iterative reconstruction technique. CTDIvol = 52.21 mGy DLP = 846.92 mGy-cm COMPARISON: CT CT HEAD on DOS: 07/10/24 FINDINGS: There is no acute intracranial hemorrhage. No mass effect or midline shift. Scattered areas of hypoattenuation are seen in the periventricular and subcortical white matter, which are nonspecific but most likely sequelae of small vessel ischemic disease. The ventricles and sulci are within normal limits in size for age. Basal cisterns are patent. The calvarium is unremarkable. Paranasal sinuses and mastoid air cells are clear. IMPRESSION: 1. No CT evidence of acute intracranial abnormality. 2. Nonacute findings as described above. Electronically Signed by:MUMTAZ GARCIA DO Date & Time: 12/23/241014 Dictated by: MUMTAZ GARCIA DO Dictation date and time: 12/23/24 1015 Primary Care Provider: NO PRIMARY CARE PROVIDER cc: LISA SHI MD ~ Medical Decision Making Findings Patient is a 74-year-old female who states she fell hitting her head and she is on Eliquis. The patient denies syncope. The patient has an abrasion to her forehead. The patient also complains of neck pain. The patient's CT imaging was reviewed by myself I have also reviewed the radiologist's interpretation no fracture was identified and the CT scan showed no acute pathology. The patient is also complaining of tailbone pain there is no evidence of fracture on her plain film x-rays. The patient was given a [place] for pain. Her wounds were cleansed the patient is otherwise well-appearing and nontoxic her outfitter cabin was interpreted as a sinus rhythm. Her previous hospitalizations were reviewed. The patient's pulse oximetry was interpreted as normal and adequate patient has a benign exam she will be discharged with instructions to follow up as an outpatient Departure Time of Disposition: 13:11 Disposition: 01 HOME / SELF CARE / HOMELESS Impression: Primary Impression: Fall Qualified Codes: W19.XXXA - Unspecified fall, initial encounter Additional Impression: Neck pain Discharge Instructions: Fall Prevention in the Home, Adult, [id number] Referrals: NO PRIMARY CARE PROVIDER (PCP) Signature Scribe Signature: no scribe Attestation: The note accurately reflects work and decisions made by me.Lisa Shi MD 12/24/24 07:16 LISA SHI MD Dec 23, 2024 09:38
--- NOTE | 2024-12-23 10:18 | RADIOLOGY REPORT ---
CLINICAL INFORMATION: Fall injury. Head injury. TECHNIQUE: Axial imaging was obtained through the brain without contrast. Coronal and sagittal reformatted images were obtained, reviewed, and stored. Images were reviewed in brain and bone windows. All CT scans at this medical facility are performed using dose modulation techniques as appropriate to a performed exam including the following: Automated exposure control was utilized; adjustment of the MA and/or KV according to patient size; and use of iterative reconstruction technique. CTDIvol = 52.21 mGy DLP = 846.92 mGy-cm COMPARISON: CT CT HEAD on DOS: 07/10/24 FINDINGS: There is no acute intracranial hemorrhage. No mass effect or midline shift. Scattered areas of hypoattenuation are seen in the periventricular and subcortical white matter, which are nonspecific but most likely sequelae of small vessel ischemic disease. The ventricles and sulci are within normal limits in size for age. Basal cisterns are patent. The calvarium is unremarkable. Paranasal sinuses and mastoid air cells are clear. IMPRESSION: 1. No CT evidence of acute intracranial abnormality. 2. Nonacute findings as described above.
--- NOTE | 2024-12-23 10:35 | RADIOLOGY REPORT ---
EXAM: CT CT CERVICAL SPINE HISTORY: fall, neck pain COMPARISON: CT CT HEAD on DOS: 12/23/24, CT CT CERVICAL SPINE on DOS: 07/10/24, CT CT HEAD on DOS: 07/10/24 CTDIvol 21 mGy, DLP 481 mGy*cm. TECHNIQUE: Multiple axial CT images of the spine were obtained using bone algorithm. Axial and coronal reformatting was done. Bone and soft tissue windows were reviewed. FINDINGS: No evidence of definite acute fracture, spinal dislocation, or significant appearing acute subluxation is seen. Multilevel degenerative changes of the spine. IMPRESSION: No acute fracture or dislocation.
[2024-12-23 10:36] LABS: CREATININE 1.51 MG/DL (0.40-0.90); TOTAL CARBON DIOXIDE 31.7 MMOL/L (24-32); eCRCL 30 ML/MIN; eGFR 34 ML/MIN
[2024-12-23] MEDS: normal saline 1000ML IV soln IVB ONE (10:41)
[2024-12-23] MEDS: acetaminophen 1,000mg/100ml IV 100 ML IV ONE (10:41)
[2024-12-23 11:08] LABS: MEAN PLATELET VOLUME 7.4 FL (7.4-10.4); RED CELL DISTRIBUTION WIDTH 13.8 % (11.5-14.5)
--- NOTE | 2024-12-23 12:42 | RADIOLOGY REPORT ---
INDICATION: fall TECHNIQUE: 3 views of the lumbar spine were obtained. COMPARISON: None FINDINGS: There are no acute fractures or subluxations. Right hip arthroplasty. Moderate degenerative changes of the left hip. IMPRESSION: No acute fracture or subluxation.
[2024-12-23 12:49] LABS: LEUKOCYTE ESTERASE ,URINE NEGATIVE (Neg); NITRITES, URINE NEGATIVE (Neg); OCCULT BLOOD,URINE NEGATIVE (Neg)
[2024-12-23 13:03] LABS: UA COLLECTION TYPE CLN CATCH MIDSTREAM
[2024-12-23 13:05] LABS: MUCUS STRANDS FEW /LPF (Neg); SQUAMOUS EPITHELIAL CELL,UR MODERATE /LPF (FEW)
[2024-12-23 13:06] LABS: RENAL CELLS, URINE FEW /HPF
[2024-12-23] MEDS: HYDROcodone/acetaminophen 5mg/325mg tablet PO ONE (13:42)
[2024-12-23 13:55] VITALS: BP 103/55; PULSE 62; RESP 16; O2SAT 100
== END 2024-12-23 13:58 | disposition home or self-care (01) ==
LOC: ER 09:16
DX: S00.81XA Abrasion of other part of head, initial encounter (principal); I48.91 Unspecified atrial fibrillation; E78.00 Pure hypercholesterolemia, unspecified; F41.9 Anxiety disorder, unspecified; G43.909 Migraine, unspecified, not intractable, without status migrainosus; Z98.890 Other specified postprocedural states; Z79.899 Other long term (current) drug therapy; W22.03XA Walked into furniture, initial encounter; Y93.89 Activity, other specified; Y92.89 Other specified places as the place of occurrence of the external cause; Y99.8 Other external cause status
CPT/HCPCS: 36415; 70450; 72125; 72220; 80048; 81001; 84145; 85025; 96361; 96374; 99285; J0131; J7030